=== PATIENT | female | born 1960 | race Caucasian/White ===

== ENCOUNTER 2016-08-07 06:44 | Day surgery (SDC) | payer MEDICARE ==
[2016-08-07] MEDS ORDERED: Sodium Chloride 0.9% 1,000 ML IV SCH (07:30)
[2016-08-07] MEDS ORDERED: fentaNYL 100 MCG/2 ML SDV ONE (07:52)
[2016-08-07] MEDS ORDERED: Midazolam 1 MG/ML 2 ML SDV ONE (07:52)
[2016-08-07] MEDS ORDERED: Propofol 200 MG/20 ML SDV ONE ×2 (07:52→08:31)
[2016-08-07 09:48] VITALS: BP 104/50
--- NOTE | 2016-08-07 14:59 | PROC ---
DATE OF PROCEDURE: 08/07/2016 INDICATION: Diya is a 56-year-old female, who comes in for a screening colonoscopy. The risks and benefits were explained to the patient. PROCEDURE IN DETAIL: Anesthesia was given by nurse air brake worker. During procedure used 2 mg of Versed, 2 mcg of fentanyl, and 400 mg of propofol. The Olympus 180L scope was used, was placed into the rectum after examination of the rectum with a gloved finger. The tube was advanced, difficult time getting through the first 20 cm and we finally got into the transverse and then into the ascending colon and it was slightly difficult. Again, we had to use the turbo funduscope and then use external pressure to get to the cecum. We finally did get to the cecum. Upon retraction of the tube, noted no lesions, ulceration, no abnormalities throughout the entire colon. The tube was removed. The patient tolerated the procedure well. PREOPERATIVE DIAGNOSIS: Screening colonoscopy. POSTOPERATIVE DIAGNOSIS: Normal colon from cecum to rectum with a very challenging colonoscopy getting through the first 20 cm and the last 20 cm. Sreedhar Chapman MD /[id number]
== END 2016-08-07 10:08 | disposition home or self-care (01) ==
LOC: JP.SDS 06:44
PROVIDERS: ATTEND Internal Medicine
DX: Z12.11 Encounter for screening for malignant neoplasm of colon (principal); I10 Essential (primary) hypertension; E78.00 Pure hypercholesterolemia, unspecified; F32.9 Major depressive disorder, single episode, unspecified; Z88.8 Allergy status to other drugs, medicaments and biological substances; F17.200 Nicotine dependence, unspecified, uncomplicated
CPT/HCPCS: G0121; J2250; J2704; J3010; J7040

== ENCOUNTER 2019-05-09 05:57 | Day surgery (SDC) | payer MEDICARE ==
[2019-05-09] MEDS ORDERED: ceFAZolin 2 GM in Premix Bag 1 BAG IV ONE (06:30)
[2019-05-09] MEDS ORDERED: Lactated Ringers 1,000 ML IV SCH (06:30)
[2019-05-09] MEDS ORDERED: Povidone-Iodine 10% Soln 118.25 ML Bottle ONE (06:31)
[2019-05-09] MEDS ORDERED: Bupivacaine 0.25% 10 ML SDV ONE ×2 (06:31→08:55)
[2019-05-09] MEDS: Nozin Nasal Sanitizer NASBOTH SCH ×2 (06:39→20:40)
[2019-05-09] MEDS ORDERED: Propofol 200 MG/20 ML SDV ONE ×3 (07:31→08:35)
[2019-05-09] MEDS ORDERED: Midazolam 1 MG/ML 2 ML SDV ONE (07:31)
[2019-05-09] MEDS ORDERED: fentaNYL 100 MCG/2 ML SDV ONE (07:31)
[2019-05-09] MEDS ORDERED: Lactated Ringers 1,000 ML ONE (08:20)
[2019-05-09] MEDS ORDERED: Magnesium Hydroxide 400 MG/5 ML Susp 30 ML Cup PO PRN (09:02)
[2019-05-09] MEDS ORDERED: Acetaminophen 325 MG Tab PO PRN (09:02)
[2019-05-09] MEDS ORDERED: Acetaminophen/Codeine 300-30 MG Tab PO PRN (09:10)
[2019-05-09] MEDS: traMADol 50 MG Tab PO PRN ×2 (10:13→18:59)
[2019-05-09] MEDS: Ketorolac 30 MG/ML SDV IVPUSH SCH ×2 (11:06→19:47)
[2019-05-09] MEDS ORDERED: hydrOXYzine HCL 100 MG/2 ML SDV IM ONE (13:06)
[2019-05-09] MEDS: ceFAZolin 1 GM in Premix Bag 1 BAG IV SCH ×2 (14:34→22:10)
[2019-05-09] MEDS: Meperidine PF 100 MG/ML Syringe IM PRN ×2 (14:44→22:17)
--- NOTE | 2019-05-09 16:21 | CRLCR ---
INDICATION: Postoperative evaluation. TECHNIQUE: Two views of the left knee. COMPARISON: None. IMPRESSION: Postsurgical changes are seen from a recent medial tibiofemoral compartment arthroplasty. Components appear well seated. Normal alignment. No periprosthetic fracture. Dictated by Bebeto Torrse MD @ May 09 2019 4:19PM Signed by Dr. Bebeto Torres @ May 09 2019 4:19PM
[2019-05-09] MEDS: Ondansetron 4 MG/2 ML SDV IVPUSH PRN (18:13)
[2019-05-09] MEDS: Sodium Chloride 0.9% 1,000 ML IV SCH (19:50)
[2019-05-09] MEDS ORDERED: Simvastatin 20 MG Tab PO SCH (21:00)
[2019-05-09] MEDS ORDERED: QUEtiapine 25 MG Tab PO SCH (21:00)
[2019-05-10] MEDS: traMADol 50 MG Tab PO PRN ×2 (02:33→08:05)
[2019-05-10] MEDS: Sodium Chloride 0.9% 1,000 ML IV SCH (04:10)
[2019-05-10] MEDS: Ketorolac 30 MG/ML SDV IVPUSH SCH (04:11)
[2019-05-10] MEDS: ceFAZolin 1 GM in Premix Bag 1 BAG IV SCH (05:47)
[2019-05-10] MEDS ORDERED: Levothyroxine 88 MCG Tab PO SCH (07:30)
[2019-05-10] MEDS: Nozin Nasal Sanitizer NASBOTH SCH (08:06)
[2019-05-10] MEDS: Acetaminophen/oxyCODONE 325-5 MG Tab PO PRN ×3 (08:37→17:07)
[2019-05-10] MEDS: Ondansetron 4 MG/2 ML SDV IVPUSH PRN (08:38)
[2019-05-10] MEDS ORDERED: cloNIDine 0.1 MG Tab PO SCH (09:00)
[2019-05-10] MEDS ORDERED: amLODIPine 5 MG Tab PO SCH (09:00)
[2019-05-10] MEDS ORDERED: Lisinopril 20 MG Tab PO SCH (09:00)
[2019-05-10 11:10] VITALS: BP 104/50; PULSE 67
[2019-05-10] MEDS: Ondansetron 4 MG Tab.DIS PO PRN ×2 (12:23→17:18)
--- NOTE | 2019-05-11 16:01 | PCM.DCSUM1 ---
Discharge Summary - Hospital Course HPI Initial Comments: 59 year old female admitted for left unicompartmental knee arthroplasty. Diagnosis: Stroke: No Modified Dewitt Scale: No Symptoms at All Modified Shira Scale Score: 0 - Discharge Data Discharge Date: 05/10/19 Discharge Disposition: Home, Self-Care 01 Condition: Good - Referral to Home Health Date of Face to Face Encounter: 05/10/19 Primary Care Physician: Sreedhar Chapman Sr, MD - Discharge Diagnosis/Problem(s) (1) Knee pain, left SNOMED Code(s): 84021242 ICD Code: M25.562 - PAIN IN LEFT KNEE Status: Acute Qualifiers: Chronicity: chronic Qualified Code(s): M25.562 - Pain in left knee; G89.29 - Other chronic pain (2) Osteoarthritis, knee SNOMED Code(s): 689885011 ICD Code: M17.10 - UNILATERAL PRIMARY OSTEOARTHRITIS, UNSPECIFIED KNEE Status: Acute Qualifiers: Osteoarthritis type: primary Laterality: left Qualified Code(s): M17.12 - Unilateral primary osteoarthritis, left knee (3) Status post unicompartmental knee replacement, left SNOMED Code(s): 701542758, 36504578, 314439307, 356963711 ICD Code: Z96.652 - PRESENCE OF LEFT ARTIFICIAL KNEE JOINT Status: Acute - Patient Summary/Data Operative Procedure(s) Performed: left medial unicompartmental knee arthroplasty Consults: Consultations 05/09/19 09:02 Consult to Case Management/Movie Stunt Performer [CONS] Routine Comment: Physician Instructions: Service(s) to be Consulted: Case Management Reason for Consult: Plan for Discharge PT Evaluation and Treatment [CONS] Routine Please Evaluate and Treat. PT Reason for Consult: Post op Ortho Surgery This query below is only for informational purposes and is not editable. PT Evaluation and Treatment [CONS] Routine Please Evaluate and Treat. PT Reason for Consult: Post op Ortho Surgery Knee Pending Discharge: Yes, 1- 2 days Special Instructions: Schedule first outpatient PT appointment in 3-5 day post discharge. This query below is only for informational purposes and is not editable. Hospital Course: admitted for left knee arthroplasty, did well with surgery, has difficulty with nausea with most pain medications, did ok with IM Demerol and was able to transition to po Percocet with Zofran, dressing changed prior to discharge, no drainage, moderate swelling, progressed with PT POD #21 and was independent with walker. Recommend ASA daily at home for DVT prophylaxis. - Patient Instructions Diet: Usual Diet as Tolerated Activity: Apply Ice, As Tolerated, Full Weight Bearing Showering/Bathing: Shower in AM Wound/Incision Care: Keep Operative Site/Wound Site Clean and Dry Notify Provider of: Fever, Increased Pain, Swelling and Redness, Drainage, Nausea and/or Vomiting - Discharge Plan *PRESCRIPTION DRUG MONITORING PROGRAM REVIEWED*: No *COPY OF PRESCRIPTION DRUG MONITORING REPORT IN PATIENT ZHAO: No Prescriptions/Med Rec: Ondansetron HCl [Zofran] 4 mg PO Q6HR PRN #30 tablet PRN Reason: Nausea oxyCODONE HCl/Acetaminophen [Percocet 5-325 mg Tablet] 2 each PO Q6HR PRN #48 tablet PRN Reason: Pain Home Medications: Home Meds Lisinopril 40 mg PO DAILY 04/13/14 [History] QUEtiapine Fumarate [Seroquel] 50 mg PO BEDTIME 04/13/14 [History] Simvastatin [Zocor] 40 mg PO BEDTIME 04/13/14 [History] Levothyroxine 88 mcg PO DAILY 04/14/14 [History] amLODIPine [Norvasc] 5 mg PO DAILY 05/09/19 [History] cloNIDine [Catapres] 0.1 mg PO DAILY 05/09/19 [History] Ondansetron HCl [Zofran] 4 mg PO Q6HR PRN #30 tablet 05/10/19 [Rx] oxyCODONE HCl/Acetaminophen [Percocet 5-325 mg Tablet] 2 each PO Q6HR PRN #48 tablet 05/10/19 [Rx] Oxygen Therapy Mode: Room Air Patient Handouts: Preventing Constipation After Surgery Referrals: Sreedhar Yee MD [Physician] - 05/24/19 10:30 am (Please arrive 15 minutes early to register for your appointment.) - Discharge Summary/Plan Comment DC Time >30 min.: No - Patient Data Vitals - Most Recent: Last Vital Signs Temp 36.3 C 05/10/19 11:00 Pulse 67 05/10/19 11:00 Resp 18 05/10/19 11:00 BP 104/50 L 05/10/19 11:00 Pulse Ox 98 05/10/19 11:00 Weight - Most Recent: 94.529 kg Med Orders - Current: Current Medications Discontinued Medications Acetaminophen (Tylenol) 650 mg PO Q4H PRN PRN Reason: Pain/Fever Acetaminophen/Codeine Phosphate (Tylenol With Codeine No.3 300mg/30mg) 2 tab PO Q4H PRN PRN Reason: Pain (moderate 4-6) Last Admin: 05/09/19 12:03 Dose: 2 tab Amlodipine Besylate (Norvasc) 5 mg PO DAILY [facility] Last Admin: 05/10/19 08:38 Dose: 5 mg Bandage/Support Products ( Nasal Operating Room Coordinator) 1 applic NASBOTH BID [facility] Last Admin: 05/10/19 08:06 Dose: 1 applic Bupivacaine HCl (Sensorcaine-Mpf 0.25%) Confirm Administered Dose 10 ml .ROUTE .STK-MED ONE Stop: 05/09/19 06:32 Last Admin: 05/09/19 08:11 Dose: 20 ml Bupivacaine HCl (Sensorcaine-Mpf 0.25%) Confirm Administered Dose 10 ml .ROUTE .STK-MED ONE Stop: 05/09/19 08:56 Clonidine HCl (Catapres) 0.1 mg PO DAILY [facility] Last Admin: 05/10/19 08:38 Dose: 0.1 mg Fentanyl (Sublimaze) Confirm Administered Dose 100 mcg .ROUTE .STK-MED ONE Stop: 05/09/19 07:32 Hydroxyzine HCl (Vistaril) 50 mg IM ONETIME ONE Stop: 05/09/19 13:07 Last Admin: 05/09/19 13:11 Dose: 50 mg Cefazolin Sodium/Dextrose 2 gm (/ Premix) 50 mls @ 100 mls/hr IV ONETIME ONE Stop: 05/09/19 06:59 Last Admin: 05/09/19 07:41 Dose: 100 mls/hr Lactated Ringer's (Ringers, Lactated) 1,000 mls @ 75 mls/hr IV ASDIRECTED [facility] Last Admin: 05/09/19 06:43 Dose: 75 mls/hr Lactated Ringer's (Ringers, Lactated) Confirm Administered Dose 1,000 mls @ as directed .ROUTE .STK-MED ONE Stop: 05/09/19 08:21 Cefazolin Sodium/Dextrose 1 gm (/ Premix) 50 mls @ 100 mls/hr IV Q8HR [facility] Stop: 05/10/19 06:29 Last Admin: 05/10/19 05:47 Dose: 100 mls/hr Sodium Chloride (Normal Saline) 1,000 mls @ 125 mls/hr IV ASDIRECTED [facility] Last Admin: 05/10/19 04:10 Dose: 125 mls/hr Ketorolac Tromethamine (Toradol) 15 mg IVPUSH Q8H [facility] Stop: 05/10/19 04:01 Last Admin: 05/10/19 04:11 Dose: 15 mg Levothyroxine Sodium (Synthroid) 88 mcg PO DAILY@0730 [facility] Last Admin: 05/10/19 08:06 Dose: 88 mcg Lisinopril (Prinivil) 40 mg PO DAILY [facility] Last Admin: 05/10/19 08:38 Dose: 40 mg Magnesium Hydroxide (Milk Of Magnesia) 30 ml PO BID PRN PRN Reason: Constipation Meperidine HCl (Demerol) 50 mg IM Q8H PRN PRN Reason: Pain (severe 7-10) Last Admin: 05/09/19 22:17 Dose: 50 mg Midazolam HCl (Versed 1 Mg/Ml) Confirm Administered Dose 2 mg .ROUTE .STK-MED ONE Stop: 05/09/19 07:32 Ondansetron HCl (Zofran) 4 mg IVPUSH Q4H PRN PRN Reason: Nausea/Vomiting Last Admin: 05/10/19 08:38 Dose: 4 mg Ondansetron HCl (Zofran Odt) 4 mg PO Q6H PRN PRN Reason: Nausea/Vomiting Last Admin: 05/10/19 17:18 Dose: 4 mg Oxycodone/Acetaminophen (Percocet 325-5 Mg) 1 - 2 tab PO Q4H PRN PRN Reason: Pain Last Admin: 05/10/19 17:07 Dose: 2 tab Povidone Iodine (Betadine 10% Soln) Confirm Administered Dose 1 ml .ROUTE .STK- MED ONE Stop: 05/09/19 06:32 Last Admin: 05/09/19 08:12 Dose: 40 ml Propofol (Diprivan 20 Ml) Confirm Administered Dose 200 mg .ROUTE .STK-MED ONE Stop: 05/09/19 07:32 Propofol (Diprivan 20 Ml) Confirm Administered Dose 200 mg .ROUTE .STK-MED ONE Stop: 05/09/19 08:16 Propofol (Diprivan 20 Ml) Confirm Administered Dose 200 mg .ROUTE .STK-MED ONE Stop: 05/09/19 08:36 Quetiapine Fumarate (Seroquel) 50 mg PO BEDTIME [facility] Last Admin: 05/09/19 20:39 Dose: 50 mg Simvastatin (Zocor) 40 mg PO BEDTIME [facility] Last Admin: 05/09/19 20:38 Dose: 40 mg Tramadol HCl (Ultram) 50 mg PO Q4H PRN PRN Reason: Pain (mild 1-3) Last Admin: 05/10/19 02:33 Dose: 50 mg
--- NOTE | 2019-05-11 20:41 | OR ---
DATE OF PROCEDURE: 05/09/2019 SURGEON: Sreedhar Yee MD PREOPERATIVE DIAGNOSIS: Osteoarthritis, medial compartment, left knee. POSTOPERATIVE DIAGNOSIS: Osteoarthritis, medial compartment, left knee. PROCEDURE: Left knee medial unicompartmental arthroplasty using ZUK components. ANESTHESIA: Spinal with sedation. INDICATIONS: Diya is a 59-year-old female with a history of progressive pain in the left knee over the past year. She has noted increasing medial knee pain and slight varus deformity. She has failed conservative treatment. 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 She now presents for a left medial unicompartmental arthroplasty. Risks, benefits, potential complications of the procedure were discussed. DESCRIPTION OF PROCEDURE: After adequate anesthesia was obtained, the patient was placed supine with a tourniquet about the left upper thigh. Left leg was prepped and draped in a sterile fashion. Leg was exsanguinated and tourniquet inflated to 300 mmHg pressure. Longitudinal incision was made over the left knee slightly medial of midline from the tibial tubercle to the superior pole of the patella. This was carried down through the subcutaneous tissues. A medial parapatellar arthrotomy was performed avoiding extension into the vastus medialis attachment. Anterior horn of the medial meniscus was excised. Anterior lip of the tibial plateau is removed with an oscillating saw. Flexion of the knee reveals grade 4 chondrosis of the weightbearing surface of the medial femoral condyle with grade 3 and 4 changes of the tibial plateau. Knee was extended and extramedullary alignment jig was placed. This was aligned and secured to the tibia and femur. Distal femoral cut was then made. This portion of the jig was removed. Knee was then flexed and the proximal tibia was resected with a combination of oscillating and reciprocating saws. Medial meniscus was excised. Femur was then sized and the appropriate jig secured to the distal femur. Peg holes were drilled and remaining cuts were made. Femoral trial was then placed with excellent position. Tibia was then sized. Tibial tray was secured and peg holes were drilled. Tibial trial was utilized and this showed good balance in both flexion and extension. The trials were then removed. The knee was thoroughly irrigated with pulse lavage. Surfaces were dried and components were cemented in place. Excess cement was removed and the knee was held in full extension with a trial insert as the cement cured. Again, knee was taken through range of motion, and balance in flexion and extension was good with an approximately 2 mm gap. Tibial trial was removed. Knee was irrigated and the polyethylene was then snapped into position. Knee was irrigated once again with a dilute Betadine solution followed by a pulse lavage. Knee was then closed in a running fashion with #2 Ethibond. Skin was closed with 2-0 Vicryl and a running 3-0 Monocryl. Steri-Strips were applied. Light compressive dressing was then placed. The patient tolerated procedure very well. There were no complications. Taken from the operating room in stable condition. Sreedhar Yee MD /[id number]
== END 2019-05-10 17:32 | disposition home or self-care (01) ==
LOC: JP.SDS 05:57 → JP.MS 09:50 → JP.SDS 05-10 17:32
PROVIDERS: ATTEND Specialist
DX: M17.12 Unilateral primary osteoarthritis, left knee (principal); I10 Essential (primary) hypertension; F31.9 Bipolar disorder, unspecified; F90.9 Attention-deficit hyperactivity disorder, unspecified type; F17.200 Nicotine dependence, unspecified, uncomplicated; Z79.899 Other long term (current) drug therapy; Z88.5 Allergy status to narcotic agent; Z88.8 Allergy status to other drugs, medicaments and biological substances
CPT/HCPCS: 27446; 36415; 73560; 86850; 86900; 86901; 97110; 97116; 97161; 97530; 97535; A9270; C1713; C1776; J0690; J1885; J2175; J2250; J2405; J2704; J3010; J3410; J3490; J7030; J7120

== ENCOUNTER 2019-05-14 11:28 | Emergency (ER) | payer MEDICARE ==
[2019-05-14 11:53] VITALS: BP 123/70; PULSE 80
--- NOTE | 2019-05-14 11:54 | EDM.PDOC ---
ED HPI GENERAL MEDICAL PROBLEM - General Chief Complaint: Lower Extremity Injury/Pain Stated Complaint: KNEE PAIN SURGERY ON KNEE 05/09/19 Time Seen by Provider: 05/14/19 11:40 Source of Information: Reports: Patient History Limitations: Reports: No Limitations - History of Present Illness INITIAL COMMENTS - FREE TEXT/NARRATIVE: 59 yo female had L knee replacement this past Thursday by Dr. Yee. She said she started having more pain and swelling yesterday. Is concerned about infection. Did not try to reach Dr. Yee yesterday. Has walker and is taking Percocet prn. No fevers. Onset: Gradual Onset Date: 05/13/19 Duration: Day(s): (1+), Getting Worse Location: Reports: Lower Extremity, Left (knee) Quality: Reports: Ache Severity: Moderate Improves with: Reports: Rest Worsens with: Reports: Movement Context: Reports: Other (see HPI) Associated Symptoms: Reports: No Other Symptoms. Denies: Fever/Chills Treatments BI DATA ARCHITECT: Reports: Other (see below) (Percocet) Left Knee Pain Score (Numeric/FACES): 8 - Related Data Allergies Allergy/AdvReac Type Severity Reaction Status Date / Time hydrocodone bitartrate AdvReac Vomiting Verified 05/14/19 11:49 [From Lorcet (hydrocodone)] methadone AdvReac Vomiting Verified 05/14/19 11:49 morphine AdvReac Vomiting Verified 05/14/19 11:49 oxycodone HCl AdvReac Vomiting Verified 05/14/19 11:49 [From OxyContin] Home Meds: Home Meds Lisinopril 40 mg PO DAILY 04/13/14 [History] QUEtiapine Fumarate [Seroquel] 50 mg PO BEDTIME 04/13/14 [History] Simvastatin [Zocor] 40 mg PO BEDTIME 04/13/14 [History] Levothyroxine 88 mcg PO DAILY 04/14/14 [History] amLODIPine [Norvasc] 5 mg PO DAILY 05/09/19 [History] cloNIDine [Catapres] 0.1 mg PO DAILY 05/09/19 [History] Ondansetron HCl [Zofran] 4 mg PO Q6HR PRN #30 tablet 05/10/19 [Rx] oxyCODONE HCl/Acetaminophen [Percocet 5-325 mg Tablet] 2 each PO Q6HR PRN #48 tablet 05/10/19 [Rx] Past Medical History HEENT History: Reports: Impaired Vision Cardiovascular History: Reports: High Cholesterol, Hypertension Respiratory History: Reports: None Gastrointestinal History: Reports: None Genitourinary History: Reports: None MEDICAL CLINIC MANAGER History: Reports: Musculoskeletal History: Reports: Arthritis, Fracture, Other (See Below) Other Musculoskeletal History: left knee pain, left shoulder pain Neurological History: Reports: Headaches, Chronic, Migraines Psychiatric History: Reports: Anxiety, Bipolar, Depression Endocrine/Metabolic History: Reports: Hypothyroidism Hematologic History: Reports: None Immunologic History: Reports: None Oncologic (Cancer) History: Reports: None Dermatologic History: Reports: None - Infectious Disease History Infectious Disease History: Reports: Chicken Pox - Past Surgical History Head Surgeries/Procedures: Reports: None HEENT Surgical History: Reports: Adenoidectomy, Tonsillectomy Cardiovascular Surgical History: Reports: None GI Surgical History: Reports: Colonoscopy Female Surgical History: Reports: Section, Tubal Ligation Endocrine Surgical History: Reports: None Neurological Surgical History: Reports: Laminectomy, Other (See Below) Other Neurological Surgeries/Procedures: herniated disc Musculoskeletal Surgical History: Reports: Arthroscopic Knee, Shoulder Surgery Other Musculoskeletal Surgeries/Procedures:: left knee 1999, right shoulder surgery Social & Family History - Family History Family Medical History: Noncontributory - Caffeine Use Caffeine Use: Reports: Soda Review of Systems - Review of Systems Review Of Systems: See Below Constitutional: Denies: Diaphoresis, Fever Musculoskeletal: Reports: Joint Pain (L knee), Joint Swelling (L knee) Skin: Reports: Other (L knee warm). Denies: Erythema ED EXAM, GENERAL - Physical Exam Exam: See Below Exam Limited By: No Limitations General Appearance: Alert, WD/WN, No Apparent Distress Extremities: Pedal Edema (L knee swollen. ), Joint Swelling (L knee), Limited Range of Motion (due to recent surgery), Increased Warmth (L knee), Other (No wound drainage. ). No: Normal Inspection, Normal Range of Motion, Non-Tender, No Pedal Edema, Redness Skin Exam: Warm, Dry, Normal Color, No Rash, Increased Warmth, Wound/Incision ( surgical wound anteriorly, vertical incision. ). No: Diaphoretic, Ecchymosis, Erythema, Lymphangitis, Petechiae, Rash Course - Vital Signs Last Recorded V/S: Last Vital Signs Temp 37.2 C 05/14/19 11:46 Pulse 80 05/14/19 11:46 Resp 16 05/14/19 11:46 BP 123/70 05/14/19 11:46 Pulse Ox 99 05/14/19 11:46 - Orders/Labs/Meds Labs: Laboratory Tests 05/14/19 Range/Units 11:49 WBC 5.9 (4.5-11.0) K/uL RBC 3.95 (3.30-5.50) M/uL Hgb 11.2 L (12.0-15.0) g/dL Hct 35.9 L (36.0-48.0) % MCV 91 (80-98) fL MCH 28 (27-31) pg MCHC 31 L (32-36) % Plt Count 249 (150-400) K/uL Departure - Departure Time of Disposition: 12:06 Disposition: Home, Self-Care 01 Condition: Good Clinical Impression: Postoperative pain of left knee Clinical Impression: (Ruled Out): Postoperative pain of right knee - Discharge Information *PRESCRIPTION DRUG MONITORING PROGRAM REVIEWED*: Not Applicable *COPY OF PRESCRIPTION DRUG MONITORING REPORT IN PATIENT ZHAO: Not Applicable Referrals: Sreedhar Chapman Sr, MD [Primary Care Provider] - Forms: ED Department Discharge Additional Instructions: Continue present cares. Stay in touch with Dr. Yee if things get worse. Sepsis Event Note - Evaluation Sepsis Screening Result: No Definite Risk - Focused Exam Vital Signs: Vital Signs Temp Pulse Resp BP Pulse Ox 05/14/19 11:46 37.2 C 80 16 123/70 99 05/14/19 11:45 37.2 C 80 16 123/70 99 Date Exam was Performed: 05/14/19 Time Exam was Performed: 12:06
== END 2019-05-14 12:16 | disposition home or self-care (01) ==
LOC: JP.ED 11:28
DX: G89.18 Other acute postprocedural pain (principal); M25.562 Pain in left knee; I10 Essential (primary) hypertension; E03.9 Hypothyroidism, unspecified; Z88.5 Allergy status to narcotic agent; Z88.8 Allergy status to other drugs, medicaments and biological substances; Z79.899 Other long term (current) drug therapy; Z98.890 Other specified postprocedural states; Z98.51 Tubal ligation status
CPT/HCPCS: 36415; 85027; 99282; 99283

== ENCOUNTER 2024-05-09 14:41 | Inpatient (IN) | payer MEDICARE ==
[2024-05-09] MEDS: Prochlorperazine 10 MG/2 ML SDV IVPUSH ONE (15:14)
[2024-05-09] MEDS ORDERED: Dextrose 5%-0.9% NaCl with KCl 1,000 ML IV SCH (15:45)
[2024-05-09] MEDS ORDERED: Cyclobenzaprine 10 MG Tab PO PRN (16:00)
[2024-05-09] MEDS: Dextrose 5%-0.9% NaCl 1,000 ML IV SCH (16:03)
[2024-05-09] MEDS: Prochlorperazine 10 MG/2 ML SDV IVPUSH PRN (21:18)
[2024-05-10 05:52] LABS: BASOPHILS ABSOLUTE AUTO 0.04 K/uL (0.00-0.10); BASOPHILS PERCENT AUTO 0.7 % (0.1-1.3); EOSINOPHILS PERCENT AUTO 0.3 % (0.0-5.4); HEMATOCRIT 29.9 % (34.3-46.0); HEMOGLOBIN 9.6 g/dL (11.2-15.5); IMMATURE GRAN PERCENT AUTO 0.3 % (0.0-0.7); LYMPHOCYTES ABSOLUTE AUTO 1.15 K/uL (0.8-3.3); LYMPHOCYTES PERCENT AUTO 19.5 % (11.4-47.7); MEAN CORPUSCULAR HEMOGLOBIN 30.1 pg (31.6-35.5); MEAN CORPUSCULAR HGB CONC 32.1 g/dL (31.6-35.5); MEAN CORPUSCULAR VOLUME 93.7 fL (81.4-99.0); MONOCYTES ABSOLUTE AUTO 0.65 K/uL (0.20-0.90); NEUTROPHILS ABSOLUTE AUTO 4.01 K/uL (1.0-7.6); NEUTROPHILS PERCENT AUTO 68.2 % (40.0-78.1); PLATELET COUNT,PLT 229 K/uL (130-375); RED BLOOD CELL COUNT 3.19 M/uL (3.77-5.24); WHITE BLOOD CELL COUNT,WBC 5.9 K/uL (3.2-11.0)
[2024-05-10 05:57] LABS: EOSINOPHILS ABSOLUTE AUTO 0.02 K/uL (0.00-0.40); IMMATURE GRAN ABSOLUTE AUTO 0.02 K/uL (0.00-0.23)
[2024-05-10 06:16] LABS: A/G RATIO 0.9 (1.2-2.2); ALANINE AMINOTRANSFERASE,ALT 30 U/L (12-78); ALBUMIN 3.4 g/dL (3.4-5.0); ALKALINE PHOSPHATASE 169 U/L (46-116); ASPARTATE AMNIOTRANSFERASE,AST 20 U/L (15-37); BILIRUBIN TOTAL 0.5 mg/dL (0.2-1.0); BLOOD UREA NITROGEN,BUN 17 mg/dL (7-18); CALCIUM 8.6 mg/dL (8.5-10.1); CARBON DIOXIDE,CO2 25 mmol/L (21-32); CHLORIDE,CL 108 mmol/L (100-108); CREATININE 1.5 mg/dL (0.6-1.0); ESTIMATED GFR 38 mL/min (>60); GLUCOSE RANDOM 110 mg/dL (74-106); SODIUM,NA 142 mmol/L (140-148)
[2024-05-10 06:18] LABS: ANION GAP 11.9 mmol/L (5.0-14.0); POTASSIUM,K 2.9 mmol/L (3.6-5.2)
[2024-05-10] MEDS: Potassium Chloride 20 MEQ Tab.ER PO ONE (06:34)
[2024-05-10] MEDS: Potassium Chloride 10 MEQ in Premix Bag 1 BAG IV ONE ×2 (06:35→07:57)
[2024-05-10] MEDS: Pantoprazole 40 MG Tab.CR PO SCH (07:57)
[2024-05-10] MEDS: Levothyroxine 88 MCG Tab PO SCH (07:57)
[2024-05-10] MEDS: Potassium Chloride 10 MEQ Cap.ER PO SCH (07:58)
[2024-05-10] MEDS: Lisinopril 20 MG Tab PO SCH (08:01)
[2024-05-10] MEDS: Amphetamine/Dextroamphetamine Salts 10 MG Cap.ER PO SCH (08:23)
[2024-05-10] MEDS ORDERED: Citalopram 20 MG Tab PO SCH (09:00)
[2024-05-10] MEDS ORDERED: Rosuvastatin 10 MG Tab PO SCH (09:00)
[2024-05-10] MEDS: Loperamide 2 MG Cap PO PRN (19:26)
[2024-05-10 20:21] LABS: ANION GAP 12.1 mmol/L (5.0-14.0); CALCIUM 8.7 mg/dL (8.5-10.1); CREATININE 1.4 mg/dL (0.6-1.0); EST CRCL DRUG DOSING (CG) 37.5 mL/min; POTASSIUM,K 3.1 mmol/L (3.6-5.2)
[2024-05-10] MEDS: Rosuvastatin 10 MG Tab PO SCH (21:34)
[2024-05-10] MEDS: Citalopram 20 MG Tab PO SCH (21:34)
[2024-05-11 05:41] VITALS: BP 116/56; PULSE 66
[2024-05-11] MEDS: Potassium Chloride 20 MEQ Tab.ER PO SCH (09:07)
[2024-05-11 09:11] LABS: CALCIUM 8.7 mg/dL (8.5-10.1); CREATININE 1.3 mg/dL (0.6-1.0); EST CRCL DRUG DOSING (CG) 40.39 mL/min; POTASSIUM,K 3.3 mmol/L (3.6-5.2)
[2024-05-11 09:12] LABS: ANION GAP 11.3 mmol/L (5.0-14.0)
== END 2024-05-11 15:35 | disposition home or self-care (01) | DRG 204 ==
LOC: JP.ICU 14:41
PROVIDERS: ADMIT Internal Medicine; ATTEND Internal Medicine
DX: R06.03 Acute respiratory distress (principal); E78.00 Pure hypercholesterolemia, unspecified; I10 Essential (primary) hypertension; M19.90 Unspecified osteoarthritis, unspecified site; G43.909 Migraine, unspecified, not intractable, without status migrainosus; E03.9 Hypothyroidism, unspecified; F41.9 Anxiety disorder, unspecified; F31.9 Bipolar disorder, unspecified; Z96.659 Presence of unspecified artificial knee joint; F15.90 Other stimulant use, unspecified, uncomplicated; R42 Dizziness and giddiness; F90.9 Attention-deficit hyperactivity disorder, unspecified type; E86.0 Dehydration; E87.6 Hypokalemia; S22.32XD Fracture of one rib, left side, subsequent encounter for fracture with routine healing; Z88.5 Allergy status to narcotic agent; Z88.8 Allergy status to other drugs, medicaments and biological substances; Z79.02 Long term (current) use of antithrombotics/antiplatelets; Z87.81 Personal history of (healed) traumatic fracture; Z90.89 Acquired absence of other organs; Z98.890 Other specified postprocedural states; Z79.899 Other long term (current) drug therapy
CPT/HCPCS: 36415; 71046; 71046-26; 80048; 80053; 85025; 87046; 87427; 89055; A9270-GY; J0780; J3480

== ENCOUNTER 2024-07-18 08:39 | Inpatient (IN) | payer MEDICARE ==
[~2024-07-18 08:39] MED LIST: Midazolam 1 MG/ML 2 ML SDV ONE; Propofol 200 MG/20 ML SDV ONE; fentaNYL 100 MCG/2 ML SDV ONE
[2024-07-18] MEDS ORDERED: Propofol 200 MG/20 ML SDV ONE (09:00)
[2024-07-18] MEDS: Nozin Nasal Sanitizer NASBOTH ONE (09:48)
[2024-07-18] MEDS: Lactated Ringers 1,000 ML IV SCH (09:49)
[2024-07-18] MEDS ORDERED: Bupivacaine 0.5% 50 ML MDV ONE (11:13)
[2024-07-18] MEDS ORDERED: Ondansetron 4 MG/2 ML SDV IVPUSH PRN ×2 (11:18→16:43)
[2024-07-18] MEDS: ceFAZolin 2 GM in Premix Bag 1 BAG IV ONE (11:25)
[2024-07-18] MEDS ORDERED: Midazolam 1 MG/ML 2 ML SDV ONE (11:47)
[2024-07-18] MEDS ORDERED: fentaNYL 100 MCG/2 ML SDV ONE (11:48)
[2024-07-18] MEDS ORDERED: Pantoprazole 40 MG Tab.CR PO PRN (12:28)
[2024-07-18] MEDS: traMADol 50 MG Tab PO SCH (14:42)
[2024-07-18] MEDS: Acetaminophen 325 MG Tab PO SCH (14:42)
[2024-07-18] MEDS: Ondansetron 4 MG Tab.DIS PO PRN (14:43)
[2024-07-18] MEDS: Ketorolac 15 MG/ML SDV IVPUSH PRN (15:25)
[2024-07-18] MEDS: Cyclobenzaprine 10 MG Tab PO PRN (15:29)
[2024-07-18] MEDS ORDERED: Ondansetron 4 MG Tab.DIS PO PRN (16:44)
[2024-07-18] MEDS: Sodium Chloride 0.9% 1,000 ML IV SCH (17:32)
[2024-07-18] MEDS: Acetaminophen/oxyCODONE 325-5 MG Tab PO PRN (17:32)
[2024-07-18] MEDS: ceFAZolin 2 GM in Premix Bag 1 BAG IV SCH (17:32)
[2024-07-18] MEDS: Nozin Nasal Sanitizer NASBOTH SCH (21:15)
[2024-07-18] MEDS: Rosuvastatin 10 MG Tab PO SCH (21:16)
[2024-07-18] MEDS: Citalopram 20 MG Tab PO SCH (21:16)
[2024-07-18] MEDS: Acetaminophen/oxyCODONE 325-10 MG Tab PO PRN (23:27)
[2024-07-19 06:06] LABS: HEMATOCRIT 29.7 % (34.3-46.0); MEAN CORPUSCULAR HEMOGLOBIN 27.4 pg (31.6-35.5); MEAN CORPUSCULAR HGB CONC 30.3 g/dL (31.6-35.5); MEAN CORPUSCULAR VOLUME 90.3 fL (81.4-99.0); RED BLOOD CELL COUNT 3.29 M/uL (3.77-5.24); WHITE BLOOD CELL COUNT,WBC 5.3 K/uL (3.2-11.0)
[2024-07-19] MEDS ORDERED: Non-Formulary Medication 1 Each (Levothyroxine [Levothyroxine] 75 MCG Tablet) PO SCH (07:30)
[2024-07-19] MEDS: Amphetamine/Dextroamphetamine Salts 10 MG Cap.ER PO SCH (08:54)
[2024-07-19] MEDS: buPROPion 150 MG Tab.ER PO SCH (08:55)
[2024-07-19] MEDS: Potassium Chloride 10 MEQ Cap.ER PO SCH (08:55)
[2024-07-19] MEDS: Aspirin 325 MG Tab.EC PO SCH (08:56)
[2024-07-19] MEDS ORDERED: buPROPion 100 MG Tab PO SCH (09:00)
[2024-07-19] MEDS ORDERED: Amphetamine/Dextroamphetamine Salts 10 MG Cap.ER PO SCH ×2 (09:00)
[2024-07-19] MEDS ORDERED: Non-Formulary Medication 1 Each (Lisinopril [Lisinopril] 40 MG Tablet) PO SCH (09:00)
[2024-07-19] MEDS: Docusate Sodium 100 MG Cap PO PRN (09:06)
[2024-07-19] MEDS: Lisinopril 20 MG Tab PO SCH (16:29)
[2024-07-19] MEDS: Levothyroxine 88 MCG Tab PO SCH (16:29)
[2024-07-20] MEDS ORDERED: Lisinopril 20 MG Tab PO SCH (09:00)
[2024-07-20] MEDS ORDERED: Sodium Chloride 0.9% 10 ML Syringe IV PRN (09:03)
[2024-07-20] MEDS: Citalopram 20 MG Tab PO SCH (12:12)
[2024-07-21] MEDS ORDERED: Magnesium Hydroxide 400 MG/5 ML Susp 30 ML Cup PO PRN (10:39)
[2024-07-21] MEDS: Sennosides/Docusate Sodium 50-8.6 MG Tab PO SCH (11:24)
[2024-07-22 05:31] VITALS: PULSE 74
[2024-07-22 08:11] VITALS: BP 128/79
== END 2024-07-22 12:25 | DRG 470 ==
LOC: JP.SDS 08:39 → JP.MS 11:19 → JP.SDS 07-19 09:22 → JP.MS 07-19 09:22
PROVIDERS: ADMIT Specialist; ATTEND Specialist
PROC: 0SR90JZ Replacement of Right Hip Joint with Synthetic Substitute, Open Approach (ICD-10-PCS; principal; 2024-07-18 10:00)
DX: M16.11 Unilateral primary osteoarthritis, right hip (principal); I10 Essential (primary) hypertension; G89.4 Chronic pain syndrome; F32.A Depression, unspecified; G47.00 Insomnia, unspecified; Z90.89 Acquired absence of other organs; Z98.890 Other specified postprocedural states
CPT/HCPCS: 36415; 72170; 72170-26; 85027; 97110-GP; 97116-GP; 97161-GP; 97165-GO; 97530-GP; 97535-GO; A9270-GY; C1713; C1776; J0665; J0690; J1885; J2250; J2704; J3010; J7030; J7120; Q0162